=== PATIENT | female | born 1945 | race American Indian/Alaskan Native ===

== ENCOUNTER 2017-10-26 02:32 | Emergency (ER) | payer MEDICARE ==
[2017-10-26] MEDS ORDERED: Oxycodone/Acetaminophen 5/325 mg Tab PO STA (03:36)
--- NOTE | 2017-10-26 03:36 | C.PDOC ---
History Of Present Illness 72 year old female with PMHx of HTN presents to the ED for evaluation after sustaining a fall. Patient reports she was going down the stairs when she lost balance with her high heels and feel. Patient reports she struck her head multiple times. Patient also reports she struck her left lower extremity as well. Patient did not try to ambulate after failing. Patient denies LOC, dizziness, blurry vision, weakness, numbness, nausea, vomiting. - HPI Time Seen by Provider: 10/26/17 03:07 Chief Complaint (Nursing): Trauma History Per: Patient History/Exam Limitations: no limitations Onset/Duration Of Symptoms: Hrs Injury Occurred (Timing): Just Before Arrival Location Of Injury: Right: Head, Left: Head, Leg Recent travel outside of the [place]: No Additional History Per: Patient - Fall Fall:Prior To Injury: Slipped, Lost Balance Past Medical History Reviewed: Historical Data, Nursing Documentation, Vital Signs Vital Signs: Last Vital Signs Temp 97.6 F 10/26/17 05:38 Pulse 84 10/26/17 05:38 Resp 18 10/26/17 05:38 BP 167/75 H 10/26/17 05:38 Pulse Ox 97 10/26/17 05:47 - Medical History PMH: HTN, Hypercholesterolemia, Hypothyroidism Denies: Chronic Kidney Disease Surgical History: No Surg Hx Family History: States: Unknown Family Hx - Social History Hx Alcohol Use: No Hx Substance Use: No - Immunization History Hx Tetanus Toxoid Vaccination: No Hx Influenza Vaccination: No Hx Pneumococcal Vaccination: No Review Of Systems Constitutional: Negative for: Fever, Chills Cardiovascular: Negative for: Chest Pain, Palpitations Gastrointestinal: Negative for: Nausea, Vomiting, Abdominal Pain Musculoskeletal: Positive for: Leg Pain Skin: Negative for: Rash Neurological: Positive for: Headache. Negative for: Weakness, Numbness, Dizziness Physical Exam - Physical Exam Appears: Non-toxic, No Acute Distress, Other (elderly) Skin: Normal Color, Warm, Dry Head: Atraumatic, Normacephalic, Other (mild contusion left frontal scalp) Eye(s): bilateral: Normal Inspection, PERRL, EOMI Ear(s): Bilateral: Normal Nose: No Discharge Oral Mucosa: Moist Throat: Normal, No Erythema, No Exudate Neck: Normal ROM, No Midline Cervical Tenderness, Supple Chest: Symmetrical, Tenderness (left rib cage, lower ribs 8,9,10 ) Cardiovascular: Rhythm Regular Respiratory: Normal Breath Sounds, No Rales, No Rhonchi, No Wheezing Gastrointestinal/Abdominal: Soft, No Tenderness, No Guarding, No Rebound Back: No Paraspinal Tenderness Extremity: Normal ROM (B/L hips), Tenderness (left tib/fib, left malleoulus), No Calf Tenderness, Capillary Refill (< 2 seconds), No Deformity, No Swelling Pulses: Left Dorsalis Pedis: Normal, Right Dorsalis Pedis: Normal Neurological/Psych: Oriented x3, Normal Speech, Normal Motor, Normal Sensation Gait: Unable To Assess ED Course And Treatment O2 Sat by Pulse Oximetry: 97 (ON RA) Pulse Ox Interpretation: Normal - Radiology CXR: Interpreted by Me, Viewed By Me CXR Interpretation: Yes: Fracture (left sided 10th ). No: No Acute Disease, Infiltrates, Pnemothorax - Other Rad Bilateral Hip X-Ray X-Ray: Interpreted by Me, Viewed By Me Interpretation: No fracture Left tib/fib X-Ray X-Ray: Interpreted by Me, Viewed By Me Interpretation: No fracture Left ankle X-Ray X-Ray: Interpreted by Me, Viewed By Me Interpretation: No fracture - CT Scan/US CT head Other Rad Studies (CT/US): Read By Radiologist, Radiology Report Reviewed CT/US Interpretation: EXAM: CT Head Without Intravenous Contrast. CLINICAL HISTORY: 72 years old, female; Pain; Headache; Additional info: Trauma. TECHNIQUE: Axial computed tomography images of the head/brain without intravenous contrast. All CT scans at. this facility use at least one of these dose optimization techniques: automated exposure control; mA. and/or kV adjustment per patient size (includes targeted exams where dose is matched to clinical. indication); or iterative reconstruction. 120 images are submitted. COMPARISON: No relevant prior studies available. FINDINGS: Brain: Cerebral and cerebellar volume loss. Minimal Patchy hypodensity is seen in the. periventricular and subcortical white matter. No hemorrhage. Ventricles: Unremarkable. No ventriculomegaly. Bones/joints: Maxillary and mandibular partial denture in place. No acute fracture. Soft tissues: Unremarkable. Vasculature: Vascular calcifications. Sinuses: Unremarkable. No acute sinusitis. Mastoid air cells: Unremarkable. No mastoid effusion. Other findings: No evidence of intact. IMPRESSION: No evidence of an acute intracranial hemorrhage, midline shift or mass effect is identified. Thank you for allowing us to participate in the care of your patient. Dictated and Authenticated by: Erica Logan MD. 10/26/2017 4:56 AM Eastern Time ([place] & [place]) Medical Decision Making Medical Decision Making: Impression: multiple contusions Plan: * CT head * Left ankle X-Ray * Left Ribs X-Ray * Percocet 1 tab PO * Left tib/fib X-Ray Disposition - Disposition Referrals: [facility] [Outside] Disposition: HOME/ ROUTINE Disposition Time: 06:26 Condition: FAIR Prescriptions: oxyCODONE/Acetaminophen [Percocet 5/325 mg Tab] 1 ea PO QID PRN #12 tab PRN Reason: Pain, Mild (1-3) Instructions: Rib Fractures in Adults Forms: [employer] (Hebrew) Print Language: AMERICAN - Clinical Impression Clinical Impression: Rib fracture - Scribe Statement The provider has reviewed the documentation as recorded by the Scribe Jarad Khan All medical record entries made by the Scribe were at my direction and personally dictated by me. I have reviewed the chart and agree that the record accurately reflects my personal performance of the history, physical exam, medical decision making, and the department course for this patient. I have also personally directed, reviewed, and agree with the discharge instructions and disposition.
[2017-10-26] MEDS ORDERED: Oxycodone/Acetaminophen 5/325 mg Tab ONE (03:43)
[2017-10-26 05:42] VITALS: BP 167/75; PULSE 84; RESP 18; TEMP 97.6
[2017-10-26 05:47] VITALS: O2SAT 97
--- NOTE | 2017-10-26 10:24 | CT ---
PROCEDURE: CT HEAD WITHOUT CONTRAST. HISTORY: Trauma COMPARISON: None available. TECHNIQUE: Axial computed tomography images were obtained through the head/brain without intravenous contrast. Radiation dose: Total exam DLP = 818.37 mGy-cm. This CT exam was performed using one or more of the following dose reduction techniques: Automated exposure control, adjustment of the mA and/or kV according to patient size, and/or use of iterative reconstruction technique. FINDINGS: HEMORRHAGE: No acute parenchymal, subarachnoid or extra-axial hemorrhage. BRAIN: Mild patchy chronic appearing patchy periventricular, deep and subcortical white matter ischemic changes. Additionally, there are chronic bilateral basal nuclei lacunar type infarcts. Diul-ou-ybnyfgin generalized volume loss Mild vascular calcifications both carotid siphons. VENTRICLES: No obstructive hydrocephalus. CALVARIUM: Unremarkable. PARANASAL SINUSES: Unremarkable as visualized. No significant inflammatory changes. MASTOID AIR CELLS: Unremarkable as visualized. No inflammatory changes. OTHER FINDINGS: None. IMPRESSION: No acute intracranial hemorrhage. Mild patchy chronic appearing patchy periventricular, deep and subcortical white matter ischemic changes. Additionally, there are chronic bilateral basal nuclei lacunar type infarcts. [id number] generalized volume loss
--- NOTE | 2017-10-26 16:31 | RAD ---
PROCEDURE: Radiographs of the left tibia and fibula. HISTORY: trauma COMPARISON: None available. TECHNIQUE: Frontal and lateral views obtained. FINDINGS: BONES: No fracture or destructive lesion. JOINT SPACES: Unremarkable. OTHER FINDINGS: No evidence of subcutaneous emphysema or radiopaque foreign bodies IMPRESSION: No evidence of acute displaced fracture nor dislocation.
--- NOTE | 2017-10-26 16:55 | RAD ---
PROCEDURE: Radiographs of the pelvis and bilateral hips HISTORY: fall COMPARISON: None. FINDINGS: BONES: Pelvis: Unremarkable. Right hip:Unremarkable. Left hip:Unremarkable. There is old fracture deformity of the proximal -mid aspect of the right femoral shaft. JOINTS: Right hip: Minimal spurring right superolateral acetabular roof. Left hip: Minimal spurring left superolateral acetabular roof. Sacroiliac Joints: Unremarkable. Pubic symphysis: Unremarkable. SOFT TISSUES: Mild vascular calcifications are present OTHER FINDINGS: None. IMPRESSION: . No evidence of acute displaced fracture nor dislocation. . Old healed fracture deformity proximal/mid aspect right femoral shaft
--- NOTE | 2017-10-26 16:58 | RAD ---
PROCEDURE: Radiographs of the Chest and Left Ribs. HISTORY: trauma COMPARISON: None available TECHNIQUE: Frontal radiograph of the chest and multiple oblique radiographs of the left ribs were obtained. FINDINGS: LEFT RIBS: No fracture or focal lesion visualized. LUNGS: Clear. PLEURA: No pneumothorax or pleural fluid. CARDIOVASCULAR: Normal sized heart. No pulmonary vascular congestion. OTHER FINDINGS: None. IMPRESSION: Unremarkable radiographs of the chest and left ribs. No left rib fracture. If symptoms persist or occult fracture suspected clinically recommend followup CT scan
== END 2017-10-26 06:04 | disposition home or self-care (01) ==
LOC: C.ER 02:32
DX: S22.32XA Fracture of one rib, left side, initial encounter for closed fracture (principal); W10.9XXA Fall (on) (from) unspecified stairs and steps, initial encounter; Y92.89 Other specified places as the place of occurrence of the external cause; I10 Essential (primary) hypertension; E78.00 Pure hypercholesterolemia, unspecified